=== PATIENT | male | born 1970 | race Caucasian/White ===

== ENCOUNTER 2021-08-11 16:09 | Emergency (ER) | payer MEDICAID ==
[~2021-08-11] VITALS: Ht 175.3 cm; Wt 77.1 kg
--- NOTE | 2021-08-11 16:21 | NUR ---
TO ER BED 11, C/O CHEST WALL PAIN, REAR ENDED AT 1430, CONCERNED SINCE HE HAD H/O RETINAL DETACHMENT, AAX3, BREATHING EVEN AND NON LABORED, AWAITING MD DEL CID
[2021-08-11 16:25] VITALS: BP 138/93
--- NOTE | 2021-08-11 17:21 | NUR ---
LEFT AGAINST MEDICAL ADVICE, AWARE
== END 2021-08-11 18:29 | disposition left against medical advice (07) ==
LOC: ER 16:15
DX: H33.21 Serous retinal detachment, right eye (principal)
CPT/HCPCS: 71045-TC

== ENCOUNTER 2022-02-21 17:10 | Emergency (ER) | payer MEDICAID, OTHER ==
[~2022-02-21] VITALS: Ht 175.3 cm; Wt 79.4 kg
--- NOTE | 2022-02-21 17:12 | NUR ---
AAOX3, BIB from home c/o Syncopal episode, laceration to right eyebrow noted. Skin is warm and dry. Placed on the monitor. Will continuously monitor the patient. Awaiting md for eval.
--- NOTE | 2022-02-21 17:25 | NUR ---
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
--- NOTE | 2022-02-21 17:36 | NUR ---
pt to radiology for head and facial ct scan via [facility].
[2022-02-21 18:19] LABS: BASOPHILS % (AUTO) 0.4 % (0.0-2.0); EOSINOPHILS % (AUTO) 2.4 % (0.0-6.0); HEMATOCRIT 41 % (39-51); HEMOGLOBIN 14.2 g/dL (13.5-17.5); LYMPHOCYTES # (AUTO) 1.3 K/uL (0.8-4.8); LYMPHOCYTES % (AUTO) 17.8 % (20.0-44.0); MEAN CORPUSCULAR HGB CONC 35 g/dl (31.0-36.0); MEAN CORPUSCULAR VOLUME 81 fL (80-96); MONOCYTES # (AUTO) 0.5 K/uL (0.1-1.30); MONOCYTES % (AUTO) 6.3 % (2.0-12.0); NEUTROPHILS # (AUTO) 5.4 K/uL (1.8-8.9); NEUTROPHILS % (AUTO) 73.1 % (43.0-81.0); PLATELET COUNT (AUTO) 145 K/uL (150-450); RED BLOOD CELL COUNT(AUTO) 5.01 MIL/uL (4.5-6.0); WHITE BLOOD COUNT (AUTO) 7.4 K/uL (4.3-11.0)
[2022-02-21] MEDS ORDERED: TDAP [DIPH/PERTUSSIS/TET] 0.5 ML VIAL IM ONE ×2 (18:30)
[2022-02-21] MEDS ORDERED: ONDANSETRON HCL/PF 4 MG/2 ML VIAL IVP ONE (18:30)
[2022-02-21] MEDS ORDERED: MORPHINE SULFATE INJ 2 MG/ML DISP.SYRIN IV ONE (18:30)
[2022-02-21 18:31] LABS: CALCIUM, SERUM 9.5 mg/dL (8.5-10.1); CARBON DIOXIDE 30 mmol/L (21-32); CHLORIDE 99 mmol/L (98-107); CREATININE 1.8 mg/dL (0.6-1.3); GLUCOSE 211 mg/dL (74-106); POTASSIUM 4.3 mmol/L (3.5-5.1); SODIUM SERUM 135 mmol/L (136-145); UREA NITROGEN, BLOOD 27 mg/dL (7-18)
--- NOTE | 2022-02-21 19:15 | NUR ---
Report given to RIMA Frias for [facility].
--- NOTE | 2022-02-21 19:24 | NUR ---
COVID ANTIGEN SWAB COLLECTED AND SENT TO LAB
--- NOTE | 2022-02-21 19:25 | NUR ---
CLINICALS FAXED TO [facility].
[2022-02-21] MEDS ORDERED: LIDOCAINE HCL/PF 1% 30 ML VIAL TP ONE (19:30)
--- NOTE | 2022-02-21 19:46 | NUR ---
CLINICALS FAXED TO [facility].
--- NOTE | 2022-02-21 19:58 | NUR ---
NEED TO FAX FACESHEET AND CT TO [facility] AT [phone]
--- NOTE | 2022-02-21 20:11 | NUR ---
JEFFERY WEIGHT SHIFTER AT PT'S BEDSIDE FOR SUTURES TO R EYEBROW LAC
[2022-02-21] MEDS ORDERED: IBUP-1955 PO (21:06)
[2022-02-21] MEDS ORDERED: HYDR-4303 PO (21:06)
[2022-02-21] MEDS ORDERED: AMOX-430 PO (21:06)
--- NOTE | 2022-02-21 21:10 | NUR ---
Patient discharged to home in stable condition. Written and verbal after care instructions given. Patient verbalizes understanding of instruction. disc provided
[2022-02-21] MEDS ORDERED: HYDROCODONE/APAP 5/325MG TABLET ONE (21:14)
[2022-02-21] MEDS ORDERED: HYDROCODONE/APAP 5/325MG TABLET PO ONE (21:30)
[2022-02-21 21:37] VITALS: BP 155/89
== END 2022-02-21 21:38 | disposition home or self-care (01) ==
LOC: ER 17:19
DX: R55 Syncope and collapse (principal); S02.31XA Fracture of orbital floor, right side, initial encounter for closed fracture; W19.XXXA Unspecified fall, initial encounter; Y92.018 Other place in single-family (private) house as the place of occurrence of the external cause; N17.9 Acute kidney failure, unspecified; H44.811 Hemophthalmos, right eye; K21.9 Gastro-esophageal reflux disease without esophagitis; E11.65 Type 2 diabetes mellitus with hyperglycemia; H54.61 Unqualified visual loss, right eye, normal vision left eye
CPT/HCPCS: 99285; 70450; 71045; 87426; 90471; 90715; 70486; 85025; 80048; 36415; 84484; 82962; 12011; 93005; J3490; A6403; C9803